=== PATIENT | male | born 1990 ===

== ENCOUNTER 2020-01-17 12:29 | Emergency (ER) | payer SELFPAY ==
--- NOTE | 2020-01-17 15:43 | RAD ---
RIGHT HAND: 01/17/20 Three views. HISTORY: Fall with injury. FINDINGS: There is deformity involving the base of the fifth metacarpal which is inadequately evaluated. This s uggests old healed fracture. No acute fracture identified. Metacarpals and phalanges otherwise appear intact. There is evidence of subchondral cystic changes involving the articular surface of the proximal third metacarpal and cystic changes probably present involving the proximal fourth and fifth metacarpals. IMPRESSION: Deformity of the proximal fifth metacarpal suggests old healed facture. No acute fracture identified. POS: [facility]
== END 2020-01-17 14:25 | disposition home or self-care (01) ==
LOC: ERS 12:29
DX: S50.811A Abrasion of right forearm, initial encounter (principal); M79.641 Pain in right hand; F17.210 Nicotine dependence, cigarettes, uncomplicated; W17.89XA Other fall from one level to another, initial encounter